=== PATIENT | female | born 1950 | race Caucasian/White ===

== ENCOUNTER 2021-04-08 15:11 | Emergency (ER) | payer MEDICARE ==
[2021-04-08 17:28] LABS: HEMOGLOBIN 12.5 gm/dl (12.3-15.3); RED BLOOD COUNT 4.06 M/UL (4.00-5.10); WHITE BLOOD COUNT 3.6 K/UL (4.5-11.0)
[2021-04-08 17:47] LABS: BUN/CREATININE RATIO 22 (0-10)
== END 2021-04-08 20:38 | disposition home or self-care (01) ==
LOC: ER1 15:11
PROVIDERS: Student in an Organized Health Care Education/Training Program
DX: R55 Syncope and collapse (principal); R32 Unspecified urinary incontinence; D72.819 Decreased white blood cell count, unspecified; R73.9 Hyperglycemia, unspecified
CPT/HCPCS: 70450; 71045; 80053; 82550; 82553; 83874; 84484; 85025; 99284